=== PATIENT | male | born 1985 | race African-American/Black ===

== ENCOUNTER 2016-12-18 20:49 | Emergency (ER) | payer SELFPAY ==
[~2016-12-18] VITALS: Ht 180.3 cm; Wt 104.0 kg
[2016-12-18 21:50] VITALS: BP 141/74
== END 2016-12-18 23:33 | disposition home or self-care (01) ==
LOC: ER 20:49
DX: S93.401A Sprain of unspecified ligament of right ankle, initial encounter (principal); M54.5 Low back pain; F17.210 Nicotine dependence, cigarettes, uncomplicated; V23.4XXA Motorcycle driver injured in collision with car, pick-up truck or van in traffic accident, initial encounter; Y93.89 Activity, other specified; Y92.488 Other paved roadways as the place of occurrence of the external cause
CPT/HCPCS: 72100; 73610; 99284